=== PATIENT | male | born 1950 | race Caucasian/White ===

== ENCOUNTER 2021-07-11 18:56 | Emergency (ER) | payer MEDICARE ==
[~2021-07-11] VITALS: Ht 170.2 cm; Wt 108.9 kg
[2021-07-11] MEDS ORDERED: NITROGLYCERIN 0.4 MG SL TAB SL PRN (19:30)
[2021-07-11] MEDS ORDERED: FUROSEMIDE 40MG VIAL IV ONE ×2 (19:30→21:30)
[2021-07-11 20:03] LABS: BASOPHILS % (AUTO) 0.8 % (0.0-5.0); EOSINOPHILS % (AUTO) 4.7 % (0.0-8.0); HEMATOCRIT 31.3 % (42-54); LYMPHOCYTES % (AUTO) 13.3 % (21.0-51.0); MEAN CORPUSCULAR HEMOGLOBIN 26.9 pg (27.0-33.0); MEAN CORPUSCULAR HGB CONC 31.6 g/dL (32.0-36.0); MEAN CORPUSCULAR VOLUME 85.1 fL (79-99); MONOCYTES % (AUTO) 5.9 % (3.0-13.0); NEUTROPHILS % (AUTO) 74.8 % (40.0-77.0); PLATELET COUNT (AUTO) 318 K/uL (130-400); RED BLOOD CELL COUNT(AUTO) 3.68 MIL/uL (4.50-6.20); RED CELL DISTRIBUTION WIDTH 14.8 % (11.0-15.5); WHITE BLOOD COUNT (AUTO) 7.9 K/uL (4.8-10.8)
[2021-07-11 20:22] LABS: CREATININE 1.4 mg/dL (0.5-1.5)
[2021-07-11 20:23] LABS: B-TYPE NATRIURETIC PEPTIDE 534 pg/mL (0-100)
[2021-07-11 20:24] LABS: ALBUMIN 3.3 g/dL (3.5-5.0); BILIRUBIN,TOTAL 0.6 mg/dL (0.2-1.0); TOTAL PROTEIN, SERUM 7.1 g/dL (6.0-8.3)
[2021-07-11 20:44] LABS: APPEARANCE,URINE Clear (CLEAR); BILIRUBIN,URINE Negative (NEGATIVE); COLOR,URINE Yellow (YELLOW); GLUCOSE, URINE (UA) Negative (NEGATIVE); KETONES,URINE Negative (NEGATIVE); LEUKOCYTE ESTERASE ,URINE Negative (NEGATIVE); NITRATE,URINE Negative (NEGATIVE); OCCULT BLOOD,URINE Negative (NEGATIVE); PH,URINE 6.5 (5.0-8.0); PROTEIN,URINE 300 mg/dL (NEGATIVE); UROBILINOGEN,URINE 0.2 mg/dL (0.2-1.0)
[2021-07-11 20:50] LABS: RBC,URINE 0-1 /HPF (0-1); WBC,URINE 0-1 /HPF (0-1)
[2021-07-11 20:51] LABS: BACTERIA,URINE Rare /HPF (None Seen); SQUAMOUS EPITHELIAL CELL,UR Rare /HPF (0-2)
[2021-07-11] MEDS ORDERED: KCL 20 MEQ ERTAB PO ONE (21:00)
[2021-07-11] MEDS ORDERED: FURO-152 PO (23:02)
[2021-07-11] MEDS ORDERED: HYDRALAZINE 20MG/ML VIAL ONE (23:25)
[2021-07-11 23:55] VITALS: BP 173/87
[2021-07-12] MEDS ORDERED: HYDRALAZINE 20MG/ML VIAL IV ONE
== END 2021-07-12 00:03 | disposition home or self-care (01) ==
LOC: EDH 18:56
DX: R60.0 Localized edema (principal); R06.02 Shortness of breath; E11.9 Type 2 diabetes mellitus without complications; E78.00 Pure hypercholesterolemia, unspecified; I10 Essential (primary) hypertension; Z79.899 Other long term (current) drug therapy
CPT/HCPCS: 36415; 71045; 80053; 81001; 83880; 84484; 85025; 93005; 96374; 96375; 96376; 99284; J0360; J1940 ×2